=== PATIENT | male | born 2005 | race Caucasian/White ===

== ENCOUNTER → 2023-03-25 | Outpatient (CLI) | payer OTHER | LOC: LAB SHORT 14:22 → LAB 14:22 | DX: L08.9 Local infection of the skin and subcutaneous tissue, unspecified (principal) | CPT/HCPCS: 87070; 87147; 87205 ==

== ENCOUNTER → 2023-10-27 | Outpatient (CLI) | payer OTHER ==
[2023-10-30 09:30] LABS: APTIMA MEDIA TYPE Urine; C. TRACHOMATIS BY TMA Negative (Negative); N. GONORRHOEAE BY TMA Negative (Negative); SPECIMEN SOURCE Urine
== END ==
LOC: LAB 11:10 → LAB SHORT 11:10
PROVIDERS: Physician Assistant
DX: N34.1 Nonspecific urethritis (principal); Z20.2 Contact with and (suspected) exposure to infections with a predominantly sexual mode of transmission
CPT/HCPCS: 87491; 87591

== ENCOUNTER 2023-11-04 20:19 | Emergency (ER) | payer OTHER ==
[~2023-11-04] VITALS: Ht 180.3 cm; Wt 90.7 kg
[2023-11-04 20:26] VITALS: BP 175/98
== END 2023-11-04 20:32 | disposition home or self-care (01) ==
LOC: ER 20:19
DX: S09.90XA Unspecified injury of head, initial encounter (principal); V89.2XXA Person injured in unspecified motor-vehicle accident, traffic, initial encounter
CPT/HCPCS: 99283

== ENCOUNTER 2024-05-03 08:58 | Day surgery (SDC) | payer OTHER ==
[~2024-05-03] VITALS: Ht 182.9 cm; Wt 84.9 kg
[2024-05-03] VITALS (10 sets, daily range): BP systolic 106–125; BP diastolic 18–94
[~2024-05-03 08:58] MED LIST: CeFAZolin Sodium 2,000 MG in NS 100 ML IV SCH; Lactated Ringer's 1,000 ML IV SCH; Tranexamic Acid 1,000 MG in NS 100 ML IV SCH
[2024-05-03] MEDS ORDERED: CeFAZolin Sodium 2,000 MG VIAL ONE (09:13)
--- NOTE | 2024-05-03 09:38 | NUR ---
History, Chart, Medications and Allergies reviewed before start of procedure. Pre-Op teaching done. Pt verbalizes understanding. Patient confirms NPO status and agrees with scheduled surgery. PT BELONGINGS BAG PLACED UNDER GURNEY. PT REQUESTS TO LEAVE UNDERWEAR ON.
[2024-05-03] MEDS ORDERED: EpiNEPhrine 1 MG/1 ML 1ML Vial ONE (09:59)
[2024-05-03] MEDS ORDERED: Bupivacaine HCl 0.25% 30 ML Injection ONE (10:23)
[2024-05-03] MEDS ORDERED: Midazolam HCl 1MG / ML 2ML Vial ONE (10:23)
--- NOTE | 2024-05-03 10:32 | NUR ---
ANES AT FOR NERVE BLOCK. PT PLACED ON 2LNC. 2MG IV VERSED GIVEN AT 1039. PROCEDURE START AT 1042. PT TOLERATED PROCEDURE WELL. VSS. PROCEDURE END AT 1044. PICTURE PLACED ON BLOCK NOTE AND GIVEN TO ANES.
[2024-05-03] MEDS ORDERED: Dexmedetomidine HCL 200 MCG / 2 ML ONE (10:33)
[2024-05-03] MEDS ORDERED: propofoL 20 ML IV ONE (10:49)
[2024-05-03] MEDS ORDERED: Rocuronium Bromide 10 MG/ML 5ML Injection IV ONE (10:49)
[2024-05-03] MEDS ORDERED: FentaNYL Citrate 50 MCG/ML 2 ML Injection IV PRN ×2 (11:25→11:35)
[2024-05-03] MEDS ORDERED: Scopolamine Hydrobromide Patch TOP SCH (11:30)
[2024-05-03] MEDS ORDERED: Ondansetron HCl 2 MG / ML 2ML Vial IV PRN (11:30)
[2024-05-03] MEDS ORDERED: Prochlorperazine Edisylate 10 mg Vial IV PRN (11:30)
[2024-05-03] MEDS ORDERED: Atropine Sulfate 0.1 MG/ML 10ML SYR IV PRN (11:30)
[2024-05-03] MEDS ORDERED: HYDROmorphone HCl/Pf 1MG SYR IV PRN ×2 (11:30)
[2024-05-03] MEDS ORDERED: Albuterol 2.5 MG/3 ML VIAL INH PRN (11:30)
[2024-05-03] MEDS ORDERED: Dexamethasone Sod Phos 10 MG/ML 1ML VIAL ONE (12:36)
[2024-05-03] MEDS ORDERED: Ondansetron HCl 2 MG / ML 2ML Vial ONE (12:36)
[2024-05-03] MEDS ORDERED: Sugammadex Sodium 200 MG/2ML SDV (100 MG/ML) ONE (13:05)
[2024-05-03] MEDS ORDERED: Ketorolac Tromethamine 30mg Vial ONE (13:17)
[2024-05-03] MEDS ORDERED: OxyCODONE HCL 5 MG TAB PO PRN (13:55)
--- NOTE | 2024-05-03 15:14 | NUR ---
DISCHARGE NOTE PT A&OX4, BREATHING RA, TOLERATING PO INTAKE. VSS. PO PAIN MEDICATION GIVEN PER MD ORDERS. PT BEGINNING TO HAVE FEELING IN R ARM, CAN MOVE FINGERS, PAINFUL TO ANTERIOR PART OF SHOULDER, PT STILL UNABLE TO MOVE ARM. COLOR TO FINGERS IS PWD, BRISK CAP REFILL. Patient up to Ambulate independently. Gait steady. Discharge instructions reviewed with patient. Patient verbalizes understanding. Copy given to patient to take home. Dressing to procedure site clean, dry, intact with no visible drainage, swelling, erythema or bruising noted. POLAR PACK IN PLACE DURING DSU STAY AND SENT HOME C INSTRUCTIONS. PT IMMOBILIZER SLING IN PLACE AND SENT HOME WITH INSTRUCTIONS. Discharged via wheelchair to private car for ride home.
== END 2024-05-03 15:05 | disposition home or self-care (01) ==
LOC: ORSCMMR 08:58 → ORSCSDS 12:45 → ORSCMMR 15:05
PROVIDERS: Orthopaedic Surgery Sports Medicine
PROC: 0RQJ4ZZ Repair Right Shoulder Joint, Percutaneous Endoscopic Approach (ICD-10-PCS; principal; 2024-05-03 10:15)
DX: S43.431A Superior glenoid labrum lesion of right shoulder, initial encounter (principal); X58.XXXA Exposure to other specified factors, initial encounter; Y93.59 Activity, other involving other sports and athletics played individually
CPT/HCPCS: A9270; C1713; J0171; J0690; J1100; J1885; J2250; J2405; J2704; J7120